=== PATIENT | male | born 1960 | race Caucasian/White ===

== ENCOUNTER 2023-03-31 10:36 | Emergency (ER) | payer OTHER ==
[2023-03-31] MEDS: Potassium Chloride 20 MEQ Tab.ER PO ONE (12:12)
[2023-03-31] MEDS: Sodium Chloride 0.9% 1,000 ML IV SCH (12:20)
[2023-03-31 12:25] LABS: INR 1.08 (1.00-1.24); PROTHROMBIN TIME 11.1 sec (9.0-11.1)
[2023-03-31 12:28] LABS: A/G RATIO 1.1; ALANINE AMINOTRANSFERASE,ALT 27 U/L (12-36); ALBUMIN 3.9 g/dL (3.2-4.6); ALKALINE PHOSPHATASE 64 IU/L (56-112); ASPARTATE AMNIOTRANSFERASE,AST 18 IU/L (5-25); BASOPHILS ABSOLUTE AUTO 0.1 x10-3/uL (0.0-0.3); BILIRUBIN TOTAL 2.4 mg/dL (0.1-1.3); BLOOD UREA NITROGEN,BUN 23 mg/dL (7-18); BUN/CREATININE RATIO 16.4 (9-20); CALCIUM 9.8 mg/dL (8.6-10.2); CARBON DIOXIDE,CO2 29 mmol/L (21-32); CHLORIDE,CL 93 mmol/L (100-110); CREATININE 1.4 mg/dL (0.70-1.30); EOSINOPHILS ABSOLUTE AUTO 0.4 x10-3/uL (0.0-0.6); EOSINOPHILS PERCENT AUTO 4.7 % (0.1-6.8); EST CRCL DRUG DOSING (CG) 55.04 mL/min; ESTIMATED GFR 56 mL/min (>60); GLUCOSE RANDOM 143 mg/dL (80-116); HEMATOCRIT 40.4 % (38.3-50.1); HEMOGLOBIN 13.7 g/dL (12.9-17.7); LYMPHOCYTES ABSOLUTE AUTO 3.4 x10-3/uL (0.5-4.5); LYMPHOCYTES PERCENT AUTO 35.1 % (15.8-45.3); MEAN CORPUSCULAR HEMOGLOBIN 30.1 pg (27.0-33.3); MEAN CORPUSCULAR HGB CONC 33.9 g/dL (28.7-35.3); MEAN CORPUSCULAR VOLUME 88.7 fL (80.8-98.7); MEAN PLATELET VOLUME 9.4 fL (6.7-11.0); MONOCYTES PERCENT AUTO 10.8 % (5.5-15.2); NEUTROPHILS ABSOLUTE AUTO 4.6 x10-3/uL (1.7-6.9); NEUTROPHILS PERCENT AUTO 48.4 % (40.3-71.8); PLATELET COUNT,PLT 290 x10(3)uL (117-477); POTASSIUM,K 2.9 mmol/L (3.5-5.3); PROTEIN TOTAL,TP 7.5 g/dL (6.0-8.0); RED BLOOD CELL COUNT 4.56 x10(6)uL (3.90-5.90); RED CELL DISTRIBUTION WIDTH 13.5 % (12.4-15.0); SODIUM,NA 135 mmol/L (135-145); WHITE BLOOD CELL COUNT,WBC 9.5 x10-3/uL (3.2-10.1)
[2023-03-31] MEDS: Sodium Chloride 0.9% 10 ML Syringe FLUSH PRN (12:30)
[2023-03-31 12:31] LABS: C-REACTIVE PROTEIN <0.50 mg/dL (<0.50); TROPONIN I 6.6 pg/mL (4.0-60.3)
[2023-03-31 12:41] LABS: BILIRUBIN,URINE NEGATIVE (NEGATIVE); GLUCOSE,URINE NORMAL (NORMAL); KETONES,URINE NEGATIVE (NEGATIVE); LEUKOCYTE ESTERASE,URINE NEGATIVE (NEGATIVE); NITRITE,URINE NEGATIVE (NEGATIVE); OCCULT BLOOD,URINE NEGATIVE (NEGATIVE); PROTEIN,URINE NEGATIVE (NEGATIVE); UROBILINOGEN,URINE NORMAL (NEGATIVE)
[2023-03-31 12:45] LABS: APPEARANCE,URINE CLEAR (CLEAR); BACTERIA,URINE OCCASIONAL (NS); COLOR,URINE YELLOW (YELLOW); SQUAMOUS EPITHELIAL CELLS,UR OCCASIONAL (NS,R,O); WBC,URINE 0-5 (0-5)
== END 2023-03-31 14:41 | disposition home or self-care (01) ==
LOC: FB.ED 10:36
DX: I95.1 Orthostatic hypotension (principal); E87.6 Hypokalemia; E83.42 Hypomagnesemia; E86.0 Dehydration; E78.00 Pure hypercholesterolemia, unspecified; I48.91 Unspecified atrial fibrillation; I10 Essential (primary) hypertension; E11.9 Type 2 diabetes mellitus without complications; Z79.01 Long term (current) use of anticoagulants; Z79.84 Long term (current) use of oral hypoglycemic drugs; Z79.899 Other long term (current) drug therapy
CPT/HCPCS: 36415; 80048; 80053; 81001; 83735; 84484; 85025; 85610; 86140; 93005; 93010; 96361; 96365; 99284; 99285-25; A9270-GY; J3475; J3490; J7030